=== PATIENT | female | born 1995 | race Caucasian/White ===

== ENCOUNTER 2017-01-05 22:14 | Emergency (ER) | payer BC ==
[2017-01-05] MEDS ORDERED: Bacitracin Zinc 1 Packet ONE (22:26)
== END 2017-01-05 22:30 | disposition home or self-care (01) ==
LOC: BURERS 22:14
DX: S01.311A Laceration without foreign body of right ear, initial encounter (principal); W45.8XXA Other foreign body or object entering through skin, initial encounter
CPT/HCPCS: 99282

== ENCOUNTER 2019-11-12 18:21 | Emergency (ER) | payer BC, SELFPAY ==
[2019-11-12] MEDS ORDERED: HYDROcodone/Acetaminophen 10/325 mg Tablet ONE (19:10)
[2019-11-12 19:18] LABS: Bilirubin Negative (Negative); Blood, Urine Negative (Negative); Clarity Slightly Cloudy (Clear); Glucose, Urine (Dipstick) Negative (Negative); Ketone, Urine Negative (Negative); Leukocyte Small (Negative); Nitrite Negative (Negative); Protein, Urine (Dipstick) Negative (Neg-Trace); pH, Urine 8.5 (5.0-9.0)
[2019-11-12 19:19] LABS: Pregnancy Test - Urine (BHCG) Negative (Negative); Pregu Control Background? CLEAR/WHITE (CLR/WHITE); Pregu Control Bar Appear? YES (CONTROL BAR)
[2019-11-12 19:25] LABS: RBC/HPF None Seen HPF (0-3); Squamous Epithelial 0-3 HPF (0-3); WBC/HPF None Seen HPF (0-3)
[2019-11-12 19:26] LABS: Bacteria/HPF Rare-Few HPF (None Seen)
== END 2019-11-12 19:37 | disposition home or self-care (01) ==
LOC: BURERS 18:21
DX: R10.32 Left lower quadrant pain (principal)
CPT/HCPCS: 81003; 81015; 81025; 99284

== ENCOUNTER 2020-08-19 12:34 | Emergency (ER) | payer SELFPAY ==
[2020-08-19] MEDS ORDERED: Morphine 2 MG/ML VIAL ONE (12:58)
[2020-08-19] MEDS ORDERED: Ondansetron ODT 4 MG TAB ONE (12:59)
[2020-08-19] MEDS ORDERED: Morphine 4 MG/ML VIAL ONE (12:59)
[2020-08-19 13:47] LABS: Bilirubin Negative (Negative); Blood, Urine Large (Negative); Clarity Cloudy (Clear); Glucose, Urine (Dipstick) Negative (Negative); Ketone, Urine Negative (Negative); Leukocyte Trace (Negative); Nitrite Negative (Negative); Protein, Urine (Dipstick) Negative (Neg-Trace); Urobilinogen 0.2 mg/dL (Less than 2); pH, Urine 5.5 (5.0-9.0)
[2020-08-19 13:48] LABS: Pregnancy Test - Urine (BHCG) Negative (Negative); Pregu Control Background? CLEAR/WHITE (CLR/WHITE); Pregu Control Bar Appear? YES (CONTROL BAR)
[2020-08-19 13:51] LABS: Bacteria/HPF Rare-Few HPF (None Seen); RBC/HPF Greater than 50 HPF (0-3); Squamous Epithelial 0-3 HPF (0-3); WBC/HPF 0-3 HPF (0-3)
[2020-08-19] MEDS ORDERED: Ketorolac Tromethamine 30 MG/ML VIAL ONE (13:58)
[2020-08-19] MEDS ORDERED: Diazepam 5 MG TAB ONE (13:58)
== END 2020-08-19 14:39 | disposition home or self-care (01) ==
LOC: BURERS 12:34
DX: M62.830 Muscle spasm of back (principal)
CPT/HCPCS: 81003; 81015; 81025; 96372; 99283; J1885; J2270; Q0162

== ENCOUNTER 2021-05-04 20:31 | Emergency (ER) | payer SELFPAY | END 2021-05-04 21:14 | LOC: BURERS 20:31 | DX: N83.209 Unspecified ovarian cyst, unspecified side (principal); R19.04 Left lower quadrant abdominal swelling, mass and lump | CPT/HCPCS: 96374; 96375; 96376 ==

== ENCOUNTER 2022-01-27 10:42 | Emergency (ER) | payer OTHER, SELFPAY ==
[2022-01-27 11:41] LABS: Bilirubin Large (Negative); Blood, Urine Trace (Negative); Clarity Cloudy (Clear); Glucose, Urine (Dipstick) 100 mg/dL (Negative); Ketone, Urine 15 mg/dL (Negative); Leukocyte Trace (Negative); Nitrite Positive (Negative); Protein, Urine (Dipstick) > or equal to 300 mg/dL (Neg-Trace); Specific Gravity, Urine 1.025 (1.005-1.030); Urobilinogen > or = 8.0 mg/dL (Less than 2)
[2022-01-27] MEDS ORDERED: Morphine 4 MG/ML VIAL ONE ×2 (11:45→17:24)
[2022-01-27 11:46] LABS: #Basophils 0.1 thou/uL (0.0-0.2); #Eosinphils 0.1 thou/uL (0.0-0.7); #Lymphocytes 1.9 thou/uL (1.20-3.40); #Monocytes 0.6 thou/uL (0.11-0.59); %Basophils 0.5 % (0.0-1.0); %Eosinophils 0.5 % (0.0-10.0); %Monocytes 5.3 % (0.0-10.0); %Neutrophils 77.7 % (42.0-75.0); Hemoglobin 15.6 g/dL (12.0-16.0); Mean Corpuscular HGB CONC 31.4 g/dL (32.0-36.0); Mean Corpuscular Hemoglobin 24.4 pg (27.0-31.0); Mean Corpuscular Volume 77.8 fl (78.0-98.0); Mean Platelet Volume 7.8 fL (7.4-10.4); Platelet Count 364 10x3/uL (130-400); RBC Distribution Width 14.3 % (11.5-14.5); Red Blood Cell (RBC) Count 6.37 mill/uL (4.20-5.40); White Blood Cell (WBC) Count 11.6 10x3/uL (4.8-10.8)
[2022-01-27 11:53] LABS: RBC/HPF 0-3 HPF (0-3)
[2022-01-27 11:54] LABS: Bacteria/HPF 3+ HPF (None Seen); Mucous/LPF 3+ LPF (<2+)
[2022-01-27 11:56] LABS: ALT (SGPT) 27 U/L (8-55); AST (SGOT) 23 U/L (5-34); Alkaline Phosphatase 76 U/L (40-110); Anion Gap 14 mmol/L (10-20); BUN (Urea Nitrogen) 14 mg/dL (7.0-18.7); Bilirubin, Total 1.4 mg/dL (0.2-1.2); Calc. Creatinine Clearance 0 mL/min (70-130); Calcium 9.5 mg/dL (7.8-10.44); Carbon Dioxide 22 mmol/L (22-29); Chloride 107 mmol/L (98-107); Estimated GFR 91; Globulin 3.9 g/dL (2.4-3.5); Glucose 128 mg/dL (70-105); Lipase 25 U/L (8-78); Potassium 3.8 mmol/L (3.5-5.1); Protein, Total 7.9 g/dL (6.0-8.3); Sodium 139 mmol/L (136-145)
[2022-01-27 12:08] LABS: Platelet Morphology Comment Appears Adequate; RBC Morphology Normal
[2022-01-27 12:09] LABS: MDiff Complete? YES
[2022-01-27 12:59] LABS: Pregnancy Test - Urine (BHCG) Negative (Negative)
[2022-01-27 13:00] LABS: Pregu Control Background? CLEAR/WHITE (CLR/WHITE); Pregu Control Bar Appear? YES (CONTROL BAR); Specific Gravity 1.025 (1.002-1.036)
== END 2022-01-27 17:37 | disposition short-term general hospital (02) ==
LOC: BURERS 10:42
DX: R19.00 Intra-abdominal and pelvic swelling, mass and lump, unspecified site (principal)
CPT/HCPCS: 36415; 74177; 80053; 81003; 81015; 81025; 83605; 83690; 85025; 96374; 96376; J2270

== ENCOUNTER 2023-04-27 11:51 | Emergency (ER) | payer SELFPAY ==
[2023-04-27] MEDS ORDERED: Ibuprofen 200 MG TAB ONE (12:52)
[2023-04-27] MEDS ORDERED: predniSONE 20 MG TAB ONE (12:52)
== END 2023-04-27 13:04 | disposition home or self-care (01) ==
LOC: BURERS 11:51
DX: M54.41 Lumbago with sciatica, right side (principal)
CPT/HCPCS: 99283; J7512

== ENCOUNTER 2023-05-20 11:10 | Emergency (ER) | payer SELFPAY | END 2023-05-20 11:45 | disposition home or self-care (01) | LOC: BURERS 11:10 | DX: M54.10 Radiculopathy, site unspecified (principal) | CPT/HCPCS: 99283 ==

== ENCOUNTER 2023-09-08 10:59 | Emergency (ER) | payer OTHER | END 2023-09-08 11:30 | disposition home or self-care (01) | LOC: BURERS 10:59 | DX: H66.92 Otitis media, unspecified, left ear (principal) | CPT/HCPCS: 99282 ==